=== PATIENT | male | born 1995 | race Caucasian/White ===

== ENCOUNTER 2021-09-29 10:11 | Emergency (ER) | payer SELFPAY ==
[~2021-09-29] VITALS: Ht 177.8 cm; Wt 61.2 kg
--- NOTE | 2021-09-29 10:11 | NUR ---
PT AMB BY C/[facility] TO CHAIR B
[2021-09-29 10:16] VITALS: BP 125/95
--- NOTE | 2021-09-29 10:21 | NUR ---
ER/MD DR PACE AT BEDSIDE FOR EVAL
--- NOTE | 2021-09-29 10:21 | NUR ---
Joseph garner in [facility] - 09/29/21 at [address] lin is evaluating patient in [facility]
[2021-09-29 10:28] VITALS: BP 125/95
--- NOTE | 2021-09-29 10:28 | NUR ---
Patient discharged with v/s stable. Written and verbal after care instructions given and explained. Patient alert, oriented and verbalized understanding of instructions. Police with in custody. All questions addressed prior to discharge. ID band removed. Patient advised to follow up with PMD.NO Rx given. Patient educated on indication of medication including possible reaction and side effects. Opportunity to ask questions provided and answered.
== END 2021-09-29 10:28 ==
LOC: MED 10:11
DX: S00.83XA Contusion of other part of head, initial encounter (principal); S80.212A Abrasion, left knee, initial encounter; S80.211A Abrasion, right knee, initial encounter; F17.210 Nicotine dependence, cigarettes, uncomplicated; Z71.6 Tobacco abuse counseling; Z88.8 Allergy status to other drugs, medicaments and biological substances; Z02.89 Encounter for other administrative examinations; Y04.0XXA Assault by unarmed brawl or fight, initial encounter; Y93.89 Activity, other specified; Y92.89 Other specified places as the place of occurrence of the external cause; Y99.8 Other external cause status
CPT/HCPCS: 99283